=== PATIENT | male | born 1955 | race Caucasian/White ===

== ENCOUNTER → 2016-08-20 | Outpatient (CLI) | payer OTHER ==
[~2016-08-20] VITALS: Ht 180.3 cm; Wt 83.9 kg
[~2016-08-20] MED LIST: /CELE20CA OR; /WARF25TA OR; /WARF5TA OR; ACET65TA OR; ASPI1TAB24 PO; ATOR1TAB19 PO; COEN200C PO; FISH1000 OR; FISH1000 PO; GARL10005 PO; GINKGO BILOBA PO; GLUC500T3 OR; LIDOCAINE 2% INJ 100 MG/5 ML SDV (FOR ANES.) As Ordered ONE; MAGN500C PO; MILKSUS OR; MIRALEX PO; MULT1TAB10 PO; MULTIVIT PO; NS 1,000 ML IV SCH; OMEP20TA7 OR; OMEP40CA2 PO; PERC5TAB8 OR; POTA99TA PO; PROPOFOL 200 MG/20 ML VIAL As Ordered ONE; RANI150T PO; SENO8.6T5 OR; SUPPLEMENTS PO; VITAMINS PO; [UNRECOGNIZED DRUG - OTHER] PO; chromium picolinate PO; cinnamon PO; hyaluronic acid PO
--- NOTE | 2016-08-20 11:05 | ROOR ---
Patient Name: Damon Sanchez Procedure Date: 08/20/2016 10:30 AM Date of : 1955 Age: 61 Room: [facility] Gender: Male Note Status: Finalized Procedure: Upper GI endoscopy + Hot Snare Polypectomy + Hemoclips Indications: Heartburn Providers: Baltazar Estrada MD Referring MD: Boyd Vincent MD Requesting Provider: Medicines: Monitored Anesthesia Care Complications: No immediate complications. Procedure: Pre-Anesthesia Assessment: - The heart rate, respiratory rate, oxygen saturations, blood pressure, adequacy of pulmonary ventilation, and response to care were monitored throughout the procedure. The Endoscope was introduced through the mouth, and advanced to the second part of duodenum. The upper GI endoscopy was accomplished without difficulty. The patient tolerated the procedure well. Findings: The Z-line was regular and was found 40 cm from the incisors. A small hiatal hernia was present. A single medium pedunculated and sessile polyp with no bleeding and no stigmata of recent bleeding was found in the gastric antrum. The polyp was removed with a hot snare. Resection and retrieval were complete. To prevent bleeding after the polypectomy, six hemostatic clips were successfully placed (MR conditional). There was no bleeding at the end of the procedure. The exam of the duodenum was otherwise normal. Impression: - Z-line regular, 40 cm from the incisors. - Small hiatal hernia. - A single gastric polyp. Resected and retrieved. Clips (MR conditional) were placed. - The examination was otherwise normal. Recommendation: - Patient has a contact number available for emergencies. The signs and symptoms of potential delayed complications were discussed with the patient. Return to normal activities tomorrow. Written discharge instructions were provided to the patient. - Soft diet for 2 days. - Discharge patient to home. - Use Prilosec (omeprazole) 40 mg PO BID. - Follow an antireflux regimen. - Await pathology results. - Telephone GI clinic for pathology results in 1 week. - Return to referring physician. - The findings and recommendations were discussed with the patient's family. Baltazar Estrada MD Baltazar Estrada MD 08/20/2016 11:04:53 AM This report has been signed electronically. Number of Addenda: 0 Note Initiated On: 08/20/2016 10:30 AM Estimated Blood Loss: Estimated blood loss: none.
--- NOTE | 2016-08-20 11:20 | ROOR ---
Patient Name: Damon Sanchez Procedure Date: 08/20/2016 10:31 AM Date of : 1955 Age: 61 Room: [facility] Gender: Male Note Status: Finalized Procedure: Colonoscopy to Cecum Indications: Screening for colorectal malignant neoplasm Providers: Baltazar Estrada MD Referring MD: Boyd Vincent MD Requesting Provider: Medicines: Monitored Anesthesia Care Complications: No immediate complications. Procedure: Pre-Anesthesia Assessment: - The heart rate, respiratory rate, oxygen saturations, blood pressure, adequacy of pulmonary ventilation, and response to care were monitored throughout the procedure. The Colonoscope was introduced through the anus and advanced to the cecum, identified by appendiceal orifice and ileocecal valve. The colonoscopy was performed without difficulty. The patient tolerated the procedure well. The quality of the bowel preparation was excellent. Findings: The perianal and digital rectal examinations were normal. Non-bleeding internal hemorrhoids were found during retroflexion. The hemorrhoids were small and Grade I (internal hemorrhoids that do not prolapse). No other significant abnormalities were identified in a careful examination of the remainder of the colon. The exam was otherwise without abnormality on direct and retroflexion views. Impression: - Non-bleeding internal hemorrhoids. - The examination was otherwise normal on direct and retroflexion views. - No specimens collected. - The exam was otherwise normal to the cecum. Recommendation: - Patient has a contact number available for emergencies. The signs and symptoms of potential delayed complications were discussed with the patient. Return to normal activities tomorrow. Written discharge instructions were provided to the patient. - Discharge patient to home. - Continue present medications. - Repeat colonoscopy in 10 years for screening purposes. - Return to referring physician. - The findings and recommendations were discussed with the patient's family. Baltazar Estrada MD Baltazar Estrada MD 08/20/2016 11:20:08 AM This report has been signed electronically. Number of Addenda: 0 Note Initiated On: 08/20/2016 10:31 AM Estimated Blood Loss: Estimated blood loss: none.
[2016-08-20 11:40] VITALS: BP 124/77
== END ==
LOC: M OPP 09:50
PROVIDERS: ATTEND Internal Medicine Gastroenterology
DX: Z12.11 Encounter for screening for malignant neoplasm of colon (principal); R12 Heartburn; K44.9 Diaphragmatic hernia without obstruction or gangrene; K31.9 Disease of stomach and duodenum, unspecified; K21.9 Gastro-esophageal reflux disease without esophagitis; E78.5 Hyperlipidemia, unspecified; Z88.5 Allergy status to narcotic agent; Z79.82 Long term (current) use of aspirin; Z79.899 Other long term (current) drug therapy

== ENCOUNTER → 2017-10-01 | Outpatient (REF) | payer OTHER ==
[2017-10-01 11:38] LABS: BASO % 0.2 % (0.0-1.0); EOS % 0.1 % (0.0-3.0); HEMATOCRIT 44.9 % (42.0-52.0); HEMOGLOBIN 14.9 g/dl (14.0-18.0); IMMATURE GRANULOCYTE % 0.3 % (0-3.0); LYMPH # 1.4 10^3/uL (1.5-4.5); MEAN CORPUSCULAR HEMOGLOBIN 30.8 pg (27.0-33.0); MEAN CORPUSCULAR HGB CONC 33.2 g/dl (32.0-36.5); MONO # 0.6 10^3/uL (0.0-0.8); MONO % 6.3 % (0.0-5.0); NEUTROPHILS # 7.1 10^3/uL (1.8-7.7); NEUTROPHILS % 78.1 % (36.0-66.0); PLATELET COUNT, AUTOMATED 198 10^3/uL (150-450); RED BLOOD COUNT 4.83 10^6/uL (4.30-6.10); RED CELL DISTRIBUTION WIDTH 13.2 % (11.5-14.5); WHITE BLOOD COUNT 9.1 10^3/uL (4.0-10.0)
[2017-10-01 12:07] LABS: ALBUMIN 4.2 GM/DL (3.2-5.2); ALBUMIN/GLOBULIN RATIO 1.56 (1.00-1.93); ALKALINE PHOSPHATASE 80 U/L (45-117); ALT/SGPT 34 U/L (12-78); ANION GAP 7 MEQ/L (8-16); AST/SGOT 22 U/L (7-37); BILIRUBIN,TOTAL 0.6 MG/DL (0.2-1.0); BLOOD UREA NITROGEN 18 MG/DL (7-18); CARBON DIOXIDE LEVEL 30 MEQ/L (21-32); CHLORIDE LEVEL 106 MEQ/L (98-107); CREATININE FOR GFR 1.24 MG/DL (0.70-1.30); GLOMERULAR FILTRATION RATE > 60.0 (>49); GLUCOSE, FASTING 91 MG/DL (70-100); POTASSIUM SERUM 4.3 MEQ/L (3.5-5.1); SODIUM LEVEL 143 MEQ/L (136-145); TOTAL PROTEIN 6.9 GM/DL (6.4-8.2)
[2017-10-01 12:12] LABS: CHOLESTEROL LEVEL 152 MG/DL (<200); CHOLESTEROL RISK RATIO 3.619 (<5); HDL CHOLESTEROL 42 MG/DL (>40); LDL CHOLESTEROL 92.8 MG/DL (<100); NON-HDL-C 110 MG/DL; TRIGLYCERIDES LEVEL 86 MG/DL (<150)
== END ==
LOC: M SFHCCLAY 07:20
DX: K21.0 Gastro-esophageal reflux disease with esophagitis (principal); I10 Essential (primary) hypertension

== ENCOUNTER → 2018-02-11 | Outpatient (REF) | payer OTHER ==
[2018-02-11 17:52] LABS: HEMATOCRIT 42.7 % (42.0-52.0); HEMOGLOBIN 14.3 g/dl (13.5-17.5); MEAN CORPUSCULAR HEMOGLOBIN 30.8 pg (27.0-33.0); MEAN CORPUSCULAR HGB CONC 33.5 g/dl (32.0-36.5); PLATELET COUNT, AUTOMATED 188 10^3/uL (150-450); RED BLOOD COUNT 4.64 10^6/uL (4.30-6.10); WHITE BLOOD COUNT 4.9 10^3/uL (4.0-10.0)
[2018-02-11 18:03] LABS: ANION GAP 6 MEQ/L (8-16); BLOOD UREA NITROGEN 15 MG/DL (7-18); CALCIUM LEVEL 8.7 MG/DL (8.8-10.2); CARBON DIOXIDE LEVEL 31 MEQ/L (21-32); CHLORIDE LEVEL 105 MEQ/L (98-107); CREATININE FOR GFR 1.08 MG/DL (0.70-1.30); GLOMERULAR FILTRATION RATE > 60.0 (>49); GLUCOSE, FASTING 85 MG/DL (70-100); POTASSIUM SERUM 4.4 MEQ/L (3.5-5.1); SODIUM LEVEL 142 MEQ/L (136-145)
== END ==
LOC: M SFHCCLAY 10:23
DX: M12.811 Other specific arthropathies, not elsewhere classified, right shoulder (principal); M75.101 Unspecified rotator cuff tear or rupture of right shoulder, not specified as traumatic; E78.2 Mixed hyperlipidemia
CPT/HCPCS: 80048

== ENCOUNTER → 2018-06-23 | Outpatient (CLI) | payer OTHER ==
[~2018-06-23] MED LIST changes: -/CELE20CA OR; -/WARF25TA OR; -/WARF5TA OR; -ACET65TA OR; -ASPI1TAB24 PO; -ATOR1TAB19 PO; -COEN200C PO; -FISH1000 OR; -FISH1000 PO; -GARL10005 PO; -GINKGO BILOBA PO; -GLUC500T3 OR; +ISOVUE-370 76% 100ML VIAL (Q9967) As Ordered; -LIDOCAINE 2% INJ 100 MG/5 ML SDV (FOR ANES.) As Ordered ONE; -MAGN500C PO; -MILKSUS OR; -MIRALEX PO; -MULT1TAB10 PO; -MULTIVIT PO; -NS 1,000 ML IV SCH; -OMEP20TA7 OR; -OMEP40CA2 PO; -PERC5TAB8 OR; -POTA99TA PO; -PROPOFOL 200 MG/20 ML VIAL As Ordered ONE; -RANI150T PO; -SENO8.6T5 OR; -SUPPLEMENTS PO; -VITAMINS PO; -[UNRECOGNIZED DRUG - OTHER] PO; -chromium picolinate PO; -cinnamon PO; -hyaluronic acid PO
== END ==
LOC: M RAD 14:51
DX: R04.2 Hemoptysis (principal)
CPT/HCPCS: Q9967

== ENCOUNTER → 2018-08-16 | Outpatient (CLI) | payer OTHER ==
[~2018-08-16] MED LIST changes: +/CELE20CA OR; +/WARF25TA OR; +/WARF5TA OR; +ACET65TA OR; +ASPI-161 PO; +ATOR1TAB19 PO; +COEN200C PO; +FISH1000 OR; +FISH1000 PO; +GARL10005 PO; +GINKGO BILOBA PO; +GLUC500T3 OR; -ISOVUE-370 76% 100ML VIAL (Q9967) As Ordered; +MAGN500C PO; +MILKSUS OR; +MIRALEX PO; +MULT1TAB10 PO; +MULTIVIT PO; +OMEP20TA7 OR; +OMEP40CA2 PO; +PERC5TAB8 OR; +POTA99TA PO; +RANI150T PO; +SENO8.6T5 OR; +SUPPLEMENTS PO; +VITAMINS PO; +[UNRECOGNIZED DRUG - OTHER] PO; +chromium picolinate PO; +cinnamon PO; +hyaluronic acid PO
--- NOTE | 2018-08-17 09:41 | REP ---
Clinical: Hemoptysis. Technique: Axial noncontrast images from the thoracic inlet to the upper abdomen with coronal and sagittal re-formations. Comparison: None. Findings: Mild basilar fibroatelectatic changes predominantly noted in the left lower lobe and lingula are appreciated. No consolidation, obvious nodule or mass. Tracheobronchial tree is patent. No significant adenopathy. Mediastinal vasculature including thoracic aorta appear normal. Heart and pericardium are normal. Evidence for gastric banding. Musculoskeletal structures are intact without focal osseous abnormality. Limited upper abdomen demonstrates normal bilateral adrenal glands. Impression: Mild bibasilar fibroatelectatic changes without consolidation, effusion, obvious nodule or mass lesion. Electronically Signed by Isaac Tenorio MD 08/17/2018 09:33 A
== END ==
LOC: M RAD 13:09
PROVIDERS: ATTEND Internal Medicine Pulmonary Disease
DX: R04.2 Hemoptysis (principal)

== ENCOUNTER 2018-09-09 06:46 | Day surgery (SDC) | payer OTHER ==
[~2018-09-09] VITALS: Ht 180.3 cm; Wt 87.5 kg
[~2018-09-09 06:46] MED LIST changes: +ALBUTEROL SULFATE 2.5 MG/0.5 ML INH NEB SOLN INH ONE; +D5W 1,000 ML IV SCH; +FISH7.5C PO; +LIDOCAINE 4% INJ 5 ML AMP NEB ONE
[2018-09-09] MEDS ORDERED: CETACAINE SPRAY 5GM As Ordered ONE (07:17)
[2018-09-09] MEDS ORDERED: LIDOCAINE 4% INJ 5 ML AMP As Ordered ONE ×2 (07:17→07:21)
[2018-09-09] MEDS ORDERED: LIDOCAINE 1% MDV 20ML VIAL As Ordered ONE (07:17)
[2018-09-09] MEDS ORDERED: LIDOCAINE VISCOUS 2% SOLN 15ML UDC As Ordered ONE (07:17)
[2018-09-09] MEDS ORDERED: EPINEPHrine 1MG/10ML SYRINGE 1.5IN As Ordered ONE (07:17)
[2018-09-09] MEDS ORDERED: MIDAZOLAM INJ 2 MG/2 ML VIAL (J2250) As Ordered ONE ×2 (07:24→07:25)
[2018-09-09] MEDS ORDERED: fentaNYL 100 MCG/2 ML INJECTION (J3010) As Ordered ONE (07:25)
[2018-09-09 08:25] VITALS: BP 111/65
--- NOTE | 2018-09-09 08:46 | RO ---
DATE OF PROCEDURE: 09/09/2018 PREOPERATIVE DIAGNOSIS: Hemoptysis. POSTOPERATIVE DIAGNOSIS: Hemoptysis. FINDINGS: Bleeding from the left nares. PROCEDURE: Bronchoscopy. DOCTOR: Dr. Garner LEGAL SERVICE SPECIALIST: None. ANESTHESIA: Fentanyl 50 mcg IV, Versed 6 mg IV, topical lidocaine 300 mg. SPECIMENS OBTAINED: None. ESTIMATED BLOOD LOSS: Minimal. None replaced. COMPLICATIONS: None observed. DRAINS: None. DESCRIPTION OF PROCEDURE: After informed consent was reviewed with the patient in the preoperative area he was brought back to the OPP suite #1. Time-out was performed with two patient identifiers identifying correct site, correct procedure. The patient was then placed given a nebulizer of 4% lidocaine to help anesthetize the airway. Direct application of 4% lidocaine was then used along with Cetacaine spray. After adequate anesthetization conscious sedation was initiated with Versed and fentanyl. On entry into the oropharynx the tongue was normal. Posterior pharynx was normal. The vallecula was normal. Vocal cords approximated normally. True and false vocal cords were normal without lesions. The vocal cords were then anesthetized with 1% lidocaine. The scope was passed through, there was some minimal amounts of mucus in the upper trachea. This was suctioned. There were no endotracheal lesions. Trachea was midline. Janet was sharp. Right and left mainstem was normal without stigmata of bleeding. RB 1-10, LB 1-10 was inspected without any endobronchial lesions, very minimal banding. After all airways were inspected no source of bleeding was found. The bronchoscope was then retroflexed into the posterior pharynx with findings of trickling of heme coming from the posterior nares. On inspection of the nares anteriorly heme was coming from the left nares. There were no observed complications. Bronchoscope was removed. The patient is in recovery. CONCLUSIONS: Hemoptysis likely from posterior nasopharyngeal bleed from the left nares. MTDD
== END 2018-09-09 08:35 | disposition home or self-care (01) ==
LOC: M OPP 06:46
PROVIDERS: ATTEND Internal Medicine Pulmonary Disease
DX: R04.2 Hemoptysis (principal); Z88.5 Allergy status to narcotic agent; Z88.2 Allergy status to sulfonamides; Z79.899 Other long term (current) drug therapy
CPT/HCPCS: 31622; J2250; J3010

== ENCOUNTER → 2018-09-29 | Outpatient (CLI) | payer OTHER ==
[~2018-09-29] MED LIST changes: -ALBUTEROL SULFATE 2.5 MG/0.5 ML INH NEB SOLN INH ONE; -D5W 1,000 ML IV SCH; -LIDOCAINE 4% INJ 5 ML AMP NEB ONE
--- NOTE | 2018-09-30 23:31 | SLEEPHOME ---
DATE OF PROCEDURE: 09/29/2018 ORDERED BY: Dr. Garner Diagnostic home sleep testing was performed due to concern for the obstructive sleep apnea syndrome. For testing a nocturnal T3 respiratory monitoring device was used. Continuous record was made of pulse, oxygen saturation, airflow, chest, abdominal strain and body position. 9 hours and 59 minutes of data were reviewed. There were 7 hours and 5 minutes marked as time in bed. During the interval marked time in bed, there were 54 respiratory events identified of 10 seconds in duration or greater for a respiratory event index of 7.6. The events were primarily obstructive. Baseline pulse rate 46 beats per minute, pulse rate ranged from 39-94. Baseline saturation was 93%. Saturations fell to 88%. Testing was performed in both the supine and nonsupine positions. IMPRESSION: Abnormal home sleep testing with repetitive respiratory events and oxygen desaturations to 88% with a respiratory event index of 7.6 is consistent with the obstructive sleep apnea syndrome. RECOMMENDATIONS: The patient should be encouraged to undergo a formal sleep evaluation and in laboratory pressure titration.
== END ==
LOC: M SLEEP HO 11:36
PROVIDERS: ATTEND Internal Medicine Pulmonary Disease
DX: G47.33 Obstructive sleep apnea (adult) (pediatric) (principal)

== ENCOUNTER → 2018-12-02 | Outpatient (CLI) | payer OTHER ==
[~2018-12-02] MED LIST changes: -/CELE20CA OR; -/WARF25TA OR; -/WARF5TA OR; +CELE1CAP4 OR; +COUM1TAB17 OR; +COUM1TAB18 OR
--- NOTE | 2018-12-08 07:28 | SLEEPCENT ---
DATE OF STUDY: 12/02/2018 ORDERED BY: Dr. Garner Nocturnal polysomnography was performed for the titration of pressure therapy in this patient with a clinical diagnosis of obstructive sleep apnea syndrome confirmed by home testing revealing a respiratory event index of 7.6. For testing, a ResMed Quattro full face mask of medium size was used and 5 cm of water pressure were applied to the circuit and the lights were extinguished. 7 hours and 51 minutes of data were reviewed. There were 241 minutes of sleep identified. Sleep latency was mildly prolonged at 19 minutes. Rapid eye movement (REM) latency was more so prolonged at 281 minutes. Sleep architecture improved late in the study. There were 2 REM periods appreciated. A prolonged period of wake resulted in a reduced sleep efficiency of 51.8%. The patient's electrocardiogram showed a sinus rhythm with an average heart rate of 46 beats per minute. Electroencephalogram (EEG) showed normal waveforms for awake and sleep. Respiratory events were fully palliated with C-PAP at a pressure of +7 and remaining measures of sleep physiology were normal. IMPRESSION: Obstructive sleep apnea syndrome (G47.33). RECOMMENDATION: Nightly use of pressure therapy at 7 cm of water.
== END ==
LOC: M SLEEP 19:16
PROVIDERS: ATTEND Physician Assistant
DX: G47.33 Obstructive sleep apnea (adult) (pediatric) (principal)

== ENCOUNTER → 2019-02-11 | Outpatient (CLI) | payer OTHER ==
--- NOTE | 2019-02-11 11:23 | REP ---
MRI LEFT KNEE WITHOUT CONTRAST: HISTORY: Pain and swelling left knee. Sharp lateral pain at injury. No comparison imaging. TECHNIQUE: Axial, coronal, sagittal imaging planes utilized. T1, proton density and T2-weighted scans were obtained in the usual fashion with and without fat saturation. MRI FINDINGS: Cortical and medullary bone signal intensity are normal. There is a small quantity of joint fluid. No observable De Los Santos's cyst. Medial and lateral patellar retinacular structures are intact. There is a marrow edema in the superolateral quadrant of the patella although adjacent retinaculum and quadriceps tendon insertions appear normal. Question contusion. There is some T2 edema anteriorly adjacent to this portion of the distal quadriceps tendon insertion site. Patellar and quadriceps tendons have an otherwise intact appearance. Anterior and posterior cruciate ligaments are normal in appearance. There is no evidence of medial or lateral collateral ligament disruption. There is a vertically oriented tear through the midbody of the medial meniscus and there is minimal medial meniscal extrusion. The medial meniscal tear extends through the posterior horn which is diminutive in size. This raises the question of a displaced meniscal removal, although no definitely displaced meniscal material is appreciated. No lateral meniscal tear is seen. There is moderate chondromalacia in the medial femoral condyle with partial thickness articular cartilage loss. Mild chondromalacia is seen in the lateral tibial plateau. There is some fissuring and moderate chondromalacia in the central patella articular cartilage. IMPRESSION: Posterior horn and midbody tear medial meniscus. The posterior horn is diminutive but no definitely displaced meniscal material is appreciated within the joint. 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 There is a marrow edema pattern in the superolateral quadrant of the patella. This may imply focal quadriceps tendon strain or tendonitis. Electronically Signed by Checo Pastor MD 02/11/2019 03:42 P
== END ==
LOC: M RAD 07:33
PROVIDERS: ATTEND Orthopaedic Surgery
DX: S83.242A Other tear of medial meniscus, current injury, left knee, initial encounter (principal); X58.XXXA Exposure to other specified factors, initial encounter; Y92.9 Unspecified place or not applicable

== ENCOUNTER → 2019-07-11 | Outpatient (REF) | payer MEDICARE, OTHER ==
[~2019-07-11] MED LIST changes: -OMEP40CA2 PO; +OMEP40CA97 PO
[2019-07-11 11:30] LABS: HEMOGLOBIN 15.3 g/dl (13.5-17.5); MEAN CORPUSCULAR HEMOGLOBIN 31.3 pg (27.0-33.0); MEAN CORPUSCULAR HGB CONC 32.6 g/dl (32.0-36.5); MEAN CORPUSCULAR VOLUME 96.1 fl (80.0-96.0); PLATELET COUNT, AUTOMATED 177 10^3/uL (150-450); RED BLOOD COUNT 4.89 10^6/uL (4.30-6.10); WHITE BLOOD COUNT 5.6 10^3/uL (4.0-10.0)
[2019-07-11 11:46] LABS: ALBUMIN 3.9 GM/DL (3.2-5.2); ALT/SGPT 41 U/L (12-78); BILIRUBIN,TOTAL 0.6 MG/DL (0.2-1.0); BLOOD UREA NITROGEN 17 MG/DL (7-18); CALCIUM LEVEL 8.7 MG/DL (8.8-10.2); CARBON DIOXIDE LEVEL 29 MEQ/L (21-32); CHLORIDE LEVEL 107 MEQ/L (98-107); CHOLESTEROL LEVEL 182 MG/DL (<200); CHOLESTEROL RISK RATIO 3.714 (<5); CREATININE FOR GFR 1.23 MG/DL (0.70-1.30); GLOMERULAR FILTRATION RATE > 60.0 (>49); GLUCOSE, FASTING 93 MG/DL (70-100); HDL CHOLESTEROL 49 MG/DL (>40); LDL CHOLESTEROL 115 MG/DL (<100); NON-HDL-C 133 MG/DL; POTASSIUM SERUM 4.6 MEQ/L (3.5-5.1); SODIUM LEVEL 143 MEQ/L (136-145); TOTAL PROTEIN 6.6 GM/DL (6.4-8.2); TRIGLYCERIDES LEVEL 91 MG/DL (<150)
== END ==
LOC: M SFHCCLAY 08:14
PROVIDERS: ATTEND Family Medicine
DX: Z12.5 Encounter for screening for malignant neoplasm of prostate (principal); E78.2 Mixed hyperlipidemia
CPT/HCPCS: 80053; 80061; 84443; 85027; G0103

== ENCOUNTER → 2020-02-17 | Outpatient (CLI) | payer MEDICARE, OTHER ==
[~2020-02-17] MED LIST changes: -COEN200C PO; +RA C200C2 PO
--- NOTE | 2020-03-23 15:27 | SLEEPCENT ---
DATE: 02/17/2020 ORDERED BY: Dorian Hauser MD Nocturnal polysomnography was performed for evaluation of sleep physiology in this patient with a history of obstructive sleep apnea syndrome in the past. There was 7 hours and 15 minutes of data reviewed. There were 302 minutes of sleep identified. Sleep latency was short at 6.5 minutes. REM latency was short at 57 minutes. Sleep architecture was good with 5 REM cycles. Overall sleep efficiency was 70.8%. The electrocardiogram showed a sinus rhythm with an average heart rate of 42 beats per minute. EEG showed normal waveforms for wake and sleep with some alpha intrusion into non-REM stages. There were 33 respiratory events identified of 10 seconds in duration or greater for an apnea- hypopnea index of 6.6. The events were obstructive not exclusive to sleep stage nor body posture. Arousals from respiratory events occurred 4.6 times per hour and oxygen desaturations were seen briefly below 90%. Remaining measures of sleep physiology were normal. IMPRESSION: Obstructive sleep apnea syndrome (G47.33), apnea-hypopnea index 6.6. RECOMMENDATIONS: The patient should be encouraged to return [facility]. In the interim, alcohol and sedative avoidance should be practiced and caution exercised during the operation of motor vehicles. MTDD
== END ==
LOC: M SLEEP 20:00
PROVIDERS: ATTEND Physician Assistant
DX: G47.33 Obstructive sleep apnea (adult) (pediatric) (principal)

== ENCOUNTER → 2020-04-13 | Outpatient (CLI) | payer MEDICARE, OTHER ==
--- NOTE | 2020-04-19 14:20 | SLEEPCENT ---
DATE: 04/13/2020 ORDERED BY: Dorian Hauser Nocturnal polysomnography was performed for the titration of pressure therapy in this patient with obstructive sleep apnea syndrome, apnea-hypopnea index 6.6. For testing, patient was fit with a ResMed F30 full-face mask of medium size. There was 4 cm of water pressure applied to the circuit, and the lights were extinguished. There was 7 hours of data reviewed. There was 198 minutes of sleep identified. Sleep latency was prolonged at 37 minutes. REM latency was normal at 88 minutes. Sleep architecture was good with three REM cycles. Overall sleep efficiency was 48.4% due to periods of wake after sleep onset. The electrocardiogram showed a sinus bradycardia. Average heart rate 42 beats per minute. EEG showed normal waveforms for wake and sleep. Respiratory events were fully palliated with CPAP at a pressure of +6. There was minimal limb activity. Limb movement arousal index on this study was 6.6. IMPRESSION: Obstructive sleep apnea syndrome (G47.33). RECOMMENDATION: Nightly use of pressure therapy, 6 cm of water. MTDD
== END ==
LOC: M SLEEP 20:00
PROVIDERS: ATTEND Physician Assistant
DX: G47.33 Obstructive sleep apnea (adult) (pediatric) (principal)

== ENCOUNTER → 2020-06-29 | Outpatient (REF) | payer MEDICARE, OTHER | LOC: M LAB REF 12:32 | PROVIDERS: ATTEND Physician Assistant | DX: Z11.59 Encounter for screening for other viral diseases (principal) ==

== ENCOUNTER → 2020-07-12 | Outpatient (REF) | payer MEDICARE, OTHER ==
[2020-07-12 15:50] LABS: HEMATOCRIT 47.8 % (42.0-52.0); HEMOGLOBIN 15.6 g/dl (13.5-17.5); MEAN CORPUSCULAR HEMOGLOBIN 31.4 pg (27.0-33.0); MEAN CORPUSCULAR HGB CONC 32.6 g/dl (32.0-36.5); MEAN CORPUSCULAR VOLUME 96.2 fl (80.0-96.0); PLATELET COUNT, AUTOMATED 190 10^3/uL (150-450); RED BLOOD COUNT 4.97 10^6/uL (4.30-6.10); WHITE BLOOD COUNT 6.6 10^3/uL (4.0-10.0)
[2020-07-12 16:21] LABS: ALBUMIN 4.1 GM/DL (3.2-5.2); ALT/SGPT 37 U/L (12-78); BILIRUBIN,TOTAL 0.6 MG/DL (0.2-1.0); BLOOD UREA NITROGEN 15 MG/DL (7-18); CARBON DIOXIDE LEVEL 31 MEQ/L (21-32); CHLORIDE LEVEL 107 MEQ/L (98-107); CHOLESTEROL LEVEL 175 MG/DL (<200); CHOLESTEROL RISK RATIO 4.069 (<5); CREATININE FOR GFR 1.12 MG/DL (0.70-1.30); GLOMERULAR FILTRATION RATE > 60.0 (>49); GLUCOSE, FASTING 95 MG/DL (70-100); HDL CHOLESTEROL 43 MG/DL (>40); LDL CHOLESTEROL 108 MG/DL (<100); NON-HDL-C 132 MG/DL; POTASSIUM SERUM 4.7 MEQ/L (3.5-5.1); SODIUM LEVEL 142 MEQ/L (136-145); TOTAL PROTEIN 6.6 GM/DL (6.4-8.2); TRIGLYCERIDES LEVEL 119 MG/DL (<150)
== END ==
LOC: M SFHCCLAY 09:47
PROVIDERS: ATTEND Family Medicine
DX: E78.2 Mixed hyperlipidemia (principal); I10 Essential (primary) hypertension; G47.33 Obstructive sleep apnea (adult) (pediatric)

== ENCOUNTER → 2022-02-21 | Outpatient (CLI) | payer MEDICARE, OTHER ==
[~2022-02-21] MED LIST changes: +FISH10005 PO; -FISH7.5C PO; +OMEP40CA4 PO; -OMEP40CA97 PO
== END ==
LOC: M PLARAD 07:42
PROVIDERS: ATTEND Family Medicine
DX: G91.2 (Idiopathic) normal pressure hydrocephalus (principal)

== ENCOUNTER → 2022-07-04 | Outpatient (CLI) | payer MEDICARE, OTHER | LOC: M PLARAD 07:44 | PROVIDERS: ATTEND Family Medicine | DX: G91.2 (Idiopathic) normal pressure hydrocephalus (principal); F07.81 Postconcussional syndrome ==

== ENCOUNTER → 2023-02-03 | Outpatient (REF) | payer MEDICARE, OTHER ==
[2023-02-03 11:40] LABS: CHOLESTEROL RISK RATIO 3.73 (<5); HDL CHOLESTEROL 38.8 MG/DL (>40); LDL CHOLESTEROL 89.2 MG/DL (<100); NON-HDL-C 106.2 MG/DL
== END ==
LOC: M SFHCCLAY 07:08
PROVIDERS: ATTEND Family Medicine
DX: E78.2 Mixed hyperlipidemia (principal); I10 Essential (primary) hypertension; K21.9 Gastro-esophageal reflux disease without esophagitis; Z12.5 Encounter for screening for malignant neoplasm of prostate; M17.11 Unilateral primary osteoarthritis, right knee; M25.561 Pain in right knee
CPT/HCPCS: 36415; 80061; 82040; 82728; 83550; 84460; 85025; G0103

== ENCOUNTER → 2023-06-19 | Outpatient (REF) | payer MEDICARE, OTHER ==
[2023-06-19 12:54] LABS: ALBUMIN 4.4 G/DL (3.2-5.2); ALKALINE PHOSPHATASE 91 U/L (46-116); ALT/SGPT 45 U/L (7.0-40); AST/SGOT 39 U/L (<34); BILIRUBIN,TOTAL 0.6 MG/DL (0.3-1.2); BLOOD UREA NITROGEN 17 MG/DL (9-23); CALCIUM LEVEL 9.5 MG/DL (8.3-10.6); CARBON DIOXIDE LEVEL 31 MMOL/L (20-31); CHLORIDE LEVEL 106 MMOL/L (98-107); CREATININE FOR GFR 1.05 MG/DL (0.70-1.30); GLOMERULAR FILTRATION RATE > 60.0 (>49); GLUCOSE, FASTING 95 MG/DL (74-106); POTASSIUM SERUM 5.3 MMOL/L (3.5-5.1); SODIUM LEVEL 141 MMOL/L (136-145); TOTAL PROTEIN 6.8 G/DL (5.7-8.2)
[2023-06-19 13:19] LABS: HEMATOCRIT 46.5 % (42.0-52.0); HEMOGLOBIN 15.3 g/dl (13.5-17.5); MEAN CORPUSCULAR HEMOGLOBIN 31.5 pg (27.0-33.0); MEAN CORPUSCULAR HGB CONC 32.9 g/dl (32.0-36.5); MEAN CORPUSCULAR VOLUME 95.9 fl (80.0-96.0); PLATELET COUNT, AUTOMATED 212 10^3/uL (150-450); RED BLOOD COUNT 4.85 10^6/uL (4.30-6.10)
== END ==
LOC: M SFHCCLAY 08:34
PROVIDERS: ATTEND Family Medicine
DX: Z00.00 Encounter for general adult medical examination without abnormal findings (principal); K21.9 Gastro-esophageal reflux disease without esophagitis; I10 Essential (primary) hypertension

== ENCOUNTER → 2023-07-10 | Outpatient (REF) | payer MEDICARE, OTHER ==
[2023-07-10 17:59] LABS: BILIRUBIN,DIRECT 0.1 MG/DL (<0.4); BILIRUBIN,TOTAL 0.4 MG/DL (0.3-1.2); TOTAL PROTEIN 6.3 G/DL (5.7-8.2)
== END ==
LOC: M SFHCCLAY 14:36
PROVIDERS: ATTEND Family Medicine
DX: R74.01 Elevation of levels of liver transaminase levels (principal)

== ENCOUNTER → 2023-07-17 | Outpatient (REF) | payer MEDICARE, OTHER | LOC: M SFHCCLAY 16:06 | PROVIDERS: ATTEND Family Medicine | DX: R74.01 Elevation of levels of liver transaminase levels (principal) ==

== ENCOUNTER → 2023-08-03 | Outpatient (REF) | payer MEDICARE, OTHER ==
[2023-08-03 18:08] LABS: ALBUMIN 4.2 G/DL (3.2-5.2); BILIRUBIN,DIRECT 0.1 MG/DL (<0.4); BILIRUBIN,TOTAL 0.5 MG/DL (0.3-1.2); TOTAL PROTEIN 6.8 G/DL (5.7-8.2)
== END ==
LOC: M SFHCCLAY 11:46
PROVIDERS: ATTEND Family Medicine
DX: R74.01 Elevation of levels of liver transaminase levels (principal)

== ENCOUNTER → 2023-08-11 | Outpatient (REF) | payer MEDICARE, OTHER | LOC: M LAB REF 17:31 | PROVIDERS: ATTEND Otolaryngology | DX: R59.0 Localized enlarged lymph nodes (principal) ==

== ENCOUNTER → 2023-09-07 | Outpatient (CLI) | payer MEDICARE, OTHER ==
[~2023-09-07] MED LIST changes: -ASPI-161 PO; +ASPI-615 PO; +ISOVUE-370 76% 100ML VIAL As Ordered ONE
== END ==
LOC: M RAD 10:00
PROVIDERS: ATTEND Otolaryngology
DX: R59.0 Localized enlarged lymph nodes (principal)
CPT/HCPCS: 70491; Q9967

== ENCOUNTER → 2023-11-11 | Outpatient (CLI) | payer MEDICARE, OTHER ==
[~2023-11-11] MED LIST changes: -ISOVUE-370 76% 100ML VIAL As Ordered ONE
== END ==
LOC: M RAD 10:18
PROVIDERS: ATTEND Otolaryngology
DX: I89.0 Lymphedema, not elsewhere classified (principal)

== ENCOUNTER → 2023-12-24 | Outpatient (CLI) | payer MEDICARE, OTHER ==
[~2023-12-24] MED LIST changes: +LIDOCAINE 1% MDV 20ML VIAL As Ordered ONE
[2023-12-24 09:12] VITALS: TEMP 98.3
[2023-12-24 09:53] VITALS: BP 140/98; O2SAT 98
== END ==
LOC: M IRPRO 08:59
PROVIDERS: ATTEND Otolaryngology
DX: R22.1 Localized swelling, mass and lump, neck (principal); J34.2 Deviated nasal septum

== ENCOUNTER → 2024-09-09 | Outpatient (REF) | payer MEDICARE, OTHER ==
[~2024-09-09] MED LIST changes: -LIDOCAINE 1% MDV 20ML VIAL As Ordered ONE
[2024-09-12 15:30] LABS: MUMPS VIRUS IgG ANTIBODY > 300.00 AU/mL (>10.99); RUBEOLA IgG ANTIBODY > 300.00 AU/mL (>16.49)
== END ==
LOC: M SFHCCLAY 11:39
PROVIDERS: ATTEND Physician Assistant
DX: Z01.84 Encounter for antibody response examination (principal)

== ENCOUNTER → 2025-06-26 | Outpatient (REF) | payer MEDICARE, OTHER ==
[~2025-06-26] MED LIST changes: -FISH10005 PO; +FISH1CAP38 PO
[2025-06-26 13:46] LABS: ALT/SGPT 41.0 U/L (7.0-40); AST/SGOT 36.0 U/L (<34); CALCIUM LEVEL 9.2 MG/DL (8.3-10.6); CARBON DIOXIDE LEVEL 30.0 MMOL/L (20-31); CHLORIDE LEVEL 102.0 MMOL/L (98-107); CHOLESTEROL LEVEL 138.0 MG/DL (<200); CHOLESTEROL RISK RATIO 3.33 (<5); CREATININE FOR GFR 1.15 MG/DL (0.70-1.30); GLOMERULAR FILTRATION RATE 68.0 (>42); LDL CHOLESTEROL 69.0 MG/DL (<100); NON-HDL-C 96.6 MG/DL; POTASSIUM SERUM 4.8 MMOL/L (3.5-5.1); SODIUM LEVEL 140.0 MMOL/L (136-145); TRIGLYCERIDES LEVEL 138.0 MG/DL (<150)
[2025-06-26 14:37] LABS: ESTIMATED AVERAGE GLUCOSE 108.0 MG/DL (60-110)
== END ==
LOC: M SFHCCLAY 09:28
PROVIDERS: ATTEND Physician Assistant
DX: I10 Essential (primary) hypertension (principal); R07.89 Other chest pain; E78.2 Mixed hyperlipidemia; K21.9 Gastro-esophageal reflux disease without esophagitis; C83.00 Small cell B-cell lymphoma, unspecified site; G47.33 Obstructive sleep apnea (adult) (pediatric); M15.9 Polyosteoarthritis, unspecified; Z12.5 Encounter for screening for malignant neoplasm of prostate; Z79.899 Other long term (current) drug therapy

== ENCOUNTER → 2025-06-30 | Outpatient (REF) | payer MEDICARE, OTHER ==
[2025-06-30 13:26] LABS: IRON (FE) 127 UG/DL (65-175)
[2025-06-30 13:27] LABS: PERCENT SATURATION 34.0 % (19.7-50.0)
[2025-06-30 13:56] LABS: HEPATITIS C VIRUS ABY INDEX 0.06 INDEX (<0.8)
== END ==
LOC: M SFHCCLAY 09:21
PROVIDERS: ATTEND Physician Assistant
DX: Z01.89 Encounter for other specified special examinations (principal); R79.89 Other specified abnormal findings of blood chemistry; Z79.899 Other long term (current) drug therapy